=== PATIENT | female | born 1985 | race African-American/Black ===

== ENCOUNTER → 2017-06-15 | Day surgery (SDC) | payer OTHER ==
[~2017-06-15] MED LIST: AMLO10TA2 PO; FLUO10TA PO; IV RINGERS,LACTATED 1000ML 1,000 ML IV SCH; LIDOCAINE 1% PF 2 ML VIAL. ID PRN; LIDOCAINE 2% PF Vial for OR 5 ML VIAL. ONE; LORA1TAB37 PO; MIDAZOLAM HCL/PF 2 MG/2 ML VIAL. IV PRN; PANT40TA5 PO; PROPOFOL 40 ML IV ONE; fentaNYL PF VIAL 100 MCG/2 ML VIAL IV PRN
[2017-06-15 08:09] VITALS: BP 120/64
--- NOTE | 2017-06-16 10:41 | PATHOLOGY ---
PATHOLOGY REPORT * * * * * * * * FINAL DIAGNOSIS: Esophagus, distal, biopsy: - Superficial fragment of squamous epithelium with mild hyperplastic changes. - No significant inflammation present. - No columnar epithelium present. (SKM:lisandro; 06/16/2017) REPORT ELECTRONICALLY SIGNED BY: Christi Chavez M.D. DATE/TIME: 06/16/2017 10:41 * * * * * * * * GROSS PATHOLOGY: Received in formalin labeled "Bere Garnica distal esophagus," is a segment of prince soft tissue measuring 0.3 cm in maximum dimension. The specimen is submitted entirely in cassette A1. (TSD; 06/15/2017) INITIAL CPT CODE(S): A; 38373 Professional services performed by [facility] [place] [address] Technical services performed by [facility] at [address] [place] [address] [address], [place] [address]. [facility], attention: Yun Rivera, fax: SPECIMEN(S) RECEIVED: A.Distal esophagus CLINICAL HISTORY: Nausea, abdominal pain; r/o Dowling's PATIENT: BERE GARNICA /AGE: 1007/14/1985 (Age: 31) PATIENT #: [id number] ALT CASE #: SPECIMEN COLLECTION DATE: 06/15/2017 SPECIMEN RECEIVED DATE: 06/15/2017 [facility] - [address] [place] [address] - PHONE: [phone] * * * END OF REPORT * * *
== END | disposition home or self-care (01) ==
LOC: SURG 06:16
PROVIDERS: ATTEND Internal Medicine Gastroenterology
DX: K21.0 Gastro-esophageal reflux disease with esophagitis (principal); I10 Essential (primary) hypertension; J45.909 Unspecified asthma, uncomplicated; E11.9 Type 2 diabetes mellitus without complications; F41.9 Anxiety disorder, unspecified; F17.200 Nicotine dependence, unspecified, uncomplicated; F32.9 Major depressive disorder, single episode, unspecified; Z87.39 Personal history of other diseases of the musculoskeletal system and connective tissue; Z86.69 Personal history of other diseases of the nervous system and sense organs; Z72.0 Tobacco use; Z86.39 Personal history of other endocrine, nutritional and metabolic disease
CPT/HCPCS: 43239; 88305; J2704; J2001